=== PATIENT | female | born 1970 | race Caucasian/White ===

== ENCOUNTER 2022-08-14 21:57 | Inpatient (IN) | payer BC ==
[~2022-08-14 21:57] MED LIST: Iopamidol-370 76% 500 ML 1 ML ONE
[2022-08-14 22:40] LABS: #Basophils 0.1 thou/uL (0.0-0.2); #Eosinphils 0.3 thou/uL (0.0-0.7); #Lymphocytes 2.2 thou/uL (1.20-3.40); #Monocytes 0.7 thou/uL (0.11-0.59); #Neutrophils 10.4 thou/uL (1.40-6.50); %Basophils 0.6 % (0.0-1.0); %Eosinophils 1.9 % (0.0-10.0); %Lymphocytes 16.4 % (21.0-51.0); %Monocytes 5.1 % (0.0-10.0); %Neutrophils 76.1 % (42.0-75.0); Hemoglobin 17.4 g/dL (12.0-16.0); Mean Corpuscular HGB CONC 33.7 g/dL (32.0-36.0); Mean Corpuscular Volume 97.7 fl (78.0-98.0); Mean Platelet Volume 7.9 fL (7.4-10.4); Platelet Count 308 10x3/uL (130-400); RBC Distribution Width 12.3 % (11.5-14.5); Red Blood Cell (RBC) Count 5.28 mill/uL (4.20-5.40); White Blood Cell (WBC) Count 13.7 10x3/uL (4.8-10.8)
[2022-08-14] MEDS ORDERED: Ondansetron PF 4 MG/2 ML Vial ONE (22:40)
[2022-08-14] MEDS ORDERED: Aspirin Chewable 81 MG TAB ONE (22:40)
[2022-08-14 23:04] LABS: ALT (SGPT) 47 U/L (8-55); AST (SGOT) 167 U/L (5-34); Albumin 4.4 g/dL (3.5-5.0); Alkaline Phosphatase 116 U/L (40-110); Anion Gap 13 mmol/L (10-20); BUN (Urea Nitrogen) 11 mg/dL (9.8-20.1); Bilirubin, Total 1.1 mg/dL (0.2-1.2); Calc. Creatinine Clearance 0 mL/min (70-130); Calcium 11.4 mg/dL (7.8-10.44); Carbon Dioxide 26 mmol/L (22-29); Chloride 103 mmol/L (98-107); Estimated GFR 93; Glucose 122 mg/dL (70-105); Lipase 48 U/L (8-78); Potassium 4.1 mmol/L (3.5-5.1); Protein, Total 7.4 g/dL (6.0-8.3); Sodium 138 mmol/L (136-145)
[2022-08-14] MEDS ORDERED: Ketorolac Tromethamine 30 MG/ML VIAL ONE (23:27)
[2022-08-15 00:04] LABS: CKMB 189.6 ng/mL (0-6.6)
[2022-08-15] MEDS ORDERED: Nitroglycerin 0.4 MG TAB 1 EACH ONE ×4 (00:17→02:55)
[2022-08-15 00:32] LABS: Bacteria/HPF 3+ HPF (None Seen); Bilirubin Negative (Negative); Blood, Urine Negative (Negative); Clarity Clear (Clear); Glucose, Urine (Dipstick) Normal (Negative); Ketone, Urine Negative (Negative); Leukocyte 25 Leu/uL (Negative); Nitrite 2+ (Negative); Protein, Urine (Dipstick) Negative (Neg-Trace); RBC/HPF 0-3 HPF (0-3); Specific Gravity, Urine 1.009 (1.002-1.036); Squamous Epithelial 0-3 HPF (0-3); Urobilinogen Normal mg/dL (Less than 2)
[2022-08-15] MEDS ORDERED: Nitroglycerin 0.4 MG TAB (25 Tab Bottle) SL PRN (02:24)
[2022-08-15] MEDS ORDERED: Ondansetron PF 4 MG/2 ML Vial IVP PRN (02:24)
[2022-08-15] MEDS ORDERED: Lorazepam 1 MG TAB PO PRN (02:41)
[2022-08-15] MEDS ORDERED: Electrolyte Replacement Protocol 1 EACH FS SCH (02:45)
[2022-08-15 03:13] LABS: Troponin I 28.873 ng/mL (< 0.028)
[2022-08-15 03:41] VITALS: BMI 21.9
[2022-08-15] MEDS ORDERED: Lactated Ringer's 1,000 ML IV SCH (03:45)
[2022-08-15] MEDS: Thiamine HCl 200 MG/2 ML VIAL SLOW IVP SCH (04:04)
[2022-08-15] MEDS: Morphine 4 MG/ML VIAL SLOW IVP PRN ×4 (04:16→21:04)
[2022-08-15 05:20] LABS: Amphetamine Not Detected (NotDetected); Barbiturates Screen Not Detected (NotDetected); Benzodiazepine Screen Not Detected (NotDetected); Cocaine Metabolite Screen Not Detected (NotDetected); Methadone Not Detected (NotDetected); Methamphetamine Not Detected (NotDetected); Opiate Screen Not Detected (NotDetected); Oxycodone Screen Not Detected (NotDetected); Phencyclidine (PCP) Not Detected (NotDetected); THC/Cannabinoid Screen Not Detected (NotDetected); Tricyclic Screen Not Detected (NotDetected)
[2022-08-15 05:30] LABS: #Eosinphils 0.2 thou/uL (0.0-0.7); #Lymphocytes 1.7 thou/uL (1.20-3.40); #Monocytes 0.6 thou/uL (0.11-0.59); #Neutrophils 8.1 thou/uL (1.40-6.50); %Basophils 0.4 % (0.0-1.0); %Eosinophils 2.3 % (0.0-10.0); %Lymphocytes 15.5 % (21.0-51.0); %Neutrophils 75.7 % (42.0-75.0); Hemoglobin 16.6 g/dL (12.0-16.0); Mean Corpuscular HGB CONC 30.6 g/dL (32.0-36.0); Mean Corpuscular Hemoglobin 30.4 pg (27.0-31.0); Mean Corpuscular Volume 99.3 fl (78.0-98.0); Mean Platelet Volume 8.5 fL (7.4-10.4); Platelet Count 300 10x3/uL (130-400); RBC Distribution Width 12.4 % (11.5-14.5); Red Blood Cell (RBC) Count 5.46 mill/uL (4.20-5.40); White Blood Cell (WBC) Count 10.7 10x3/uL (4.8-10.8)
[2022-08-15 05:46] LABS: Hemoglobin A1c 5.2 % (4.0-6.0)
[2022-08-15 05:50] LABS: Anion Gap 12 mmol/L (10-20); BUN (Urea Nitrogen) 10 mg/dL (9.8-20.1); Calc. Creatinine Clearance 71 mL/min (70-130); Calcium 10.3 mg/dL (7.8-10.44); Carbon Dioxide 23 mmol/L (22-29); Cardiac Risk 4.7 (Less than 4.5); Chloride 105 mmol/L (98-107); Cholesterol 192 mg/dl (< 200 Desired); Estimated GFR 100; Glucose 106 mg/dL (70-105); HDL Cholesterol 41 mg/dL (>60 Neg Risk); LDL Cholesterol, Calculated 117 mg/dL; Potassium 4.5 mmol/L (3.5-5.1); Sodium 135 mmol/L (136-145); Triglycerides 168 mg/dL (Less than 150)
[2022-08-15] MEDS ORDERED: Nicotine 21 MG PATCH TD SCH (06:00)
[2022-08-15 06:06] LABS: Troponin I 25.394 ng/mL (< 0.028)
[2022-08-15 06:15] LABS: HBSAg Index 0.26 S/CO (0-0.99); HIV (1/2) Antibody/Antigen Non-Reactive (NonReactive); HIV 1/2 INDEX 0.28 S/CO (<1.00); Hep B Surf Ag Non-Reactive S/CO (NonReactive); Hep C IgG Ab Non-Reactive (NonReactive)
[2022-08-15] MEDS: Multivit, Therapeutic 1 TAB PO SCH (07:57)
[2022-08-15] MEDS: Folic Acid 1 MG TAB PO SCH (07:57)
[2022-08-15] MEDS: Aspirin Chewable 81 MG TAB PO SCH (07:57)
[2022-08-15] MEDS: Nitrofurantoin Monohyd/M-Cryst 100 MG CAP PO SCH ×2 (07:57→21:01)
[2022-08-15] MEDS ORDERED: Sodium Chloride 0.9% 1,000 ML IV SCH ×2 (08:30→14:49)
[2022-08-15] MEDS ORDERED: Communication Order-Pharmacy FS SCH (08:30)
[2022-08-15] MEDS ORDERED: Iopamidol 370 76% 100 ML VIAL ONE (10:19)
[2022-08-15 11:06] LABS: Syphilis Antibody Nonreactive (Nonreactive); Syphilis Antibody Index 0.16 S/CO (<1.00 Non-Reactive)
[2022-08-15] MEDS: Acetaminophen 325 MG TAB PO PRN (11:51)
[2022-08-15] MEDS ORDERED: Lidocaine 1% (PF) 30 ML VIAL ONE (12:50)
[2022-08-15] MEDS ORDERED: Heparin 10,000 UNITS/ 10 ML VIAL ONE (13:22)
[2022-08-15] MEDS ORDERED: Midazolam HCl 2 mg/2 ml Vial ONE (13:23)
[2022-08-15] MEDS ORDERED: FENTANYL 50 MCG/ML 1 ML VIAL ONE (13:23)
[2022-08-15] MEDS ORDERED: Nitroglycerin 100MG/250ML BOT 0 ML ONE (13:52)
[2022-08-15] MEDS ORDERED: TICAGRELOR 90 MG TABLET ONE (14:28)
[2022-08-15] MEDS ORDERED: Morphine 4 MG/ML VIAL ONE (17:40)
[2022-08-15] MEDS: Carvedilol 3.125 MG TAB PO SCH (21:00)
[2022-08-15] MEDS: Atorvastatin Calcium 40 MG TAB PO SCH (21:00)
[2022-08-15] MEDS: TICAGRELOR 90 MG TABLET PO SCH (21:00)
[2022-08-16] MEDS ORDERED: Lorazepam 1 MG TAB PO PRN (02:41)
[2022-08-16] MEDS: Thiamine HCl 200 MG/2 ML VIAL SLOW IVP SCH (03:17)
[2022-08-16 05:00] LABS: #Eosinphils 0.2 thou/uL (0.0-0.7); #Lymphocytes 1.4 thou/uL (1.20-3.40); #Monocytes 0.7 thou/uL (0.11-0.59); #Neutrophils 7.9 thou/uL (1.40-6.50); %Basophils 0.5 % (0.0-1.0); %Eosinophils 1.6 % (0.0-10.0); %Monocytes 6.7 % (0.0-10.0); %Neutrophils 77.2 % (42.0-75.0); Hemoglobin 15.5 g/dL (12.0-16.0); Mean Corpuscular HGB CONC 33.7 g/dL (32.0-36.0); Mean Corpuscular Hemoglobin 33.6 pg (27.0-31.0); Mean Corpuscular Volume 99.7 fl (78.0-98.0); Mean Platelet Volume 8.2 fL (7.4-10.4); Platelet Count 250 10x3/uL (130-400); RBC Distribution Width 12.3 % (11.5-14.5); White Blood Cell (WBC) Count 10.2 10x3/uL (4.8-10.8)
[2022-08-16 05:15] LABS: ALT (SGPT) 24 U/L (8-55); AST (SGOT) 53 U/L (5-34); Albumin 3.5 g/dL (3.5-5.0); Alkaline Phosphatase 96 U/L (40-110); Anion Gap 11 mmol/L (10-20); BUN (Urea Nitrogen) 13 mg/dL (9.8-20.1); Bilirubin, Total 1.2 mg/dL (0.2-1.2); Calc. Creatinine Clearance 72 mL/min (70-130); Calcium 8.9 mg/dL (7.8-10.44); Carbon Dioxide 24 mmol/L (22-29); Chloride 105 mmol/L (98-107); Estimated GFR 101; Globulin 2.7 g/dL (2.4-3.5); Glucose 103 mg/dL (70-105); Potassium 4.4 mmol/L (3.5-5.1); Protein, Total 6.2 g/dL (6.0-8.3); Sodium 136 mmol/L (136-145)
[2022-08-16] MEDS: Morphine 4 MG/ML VIAL SLOW IVP PRN (07:22)
[2022-08-16] MEDS: Nitrofurantoin Monohyd/M-Cryst 100 MG CAP PO SCH (08:56)
[2022-08-16] MEDS: Carvedilol 3.125 MG TAB PO SCH ×2 (08:56→17:41)
[2022-08-16] MEDS: Multivit, Therapeutic 1 TAB PO SCH (08:56)
[2022-08-16] MEDS: Aspirin Chewable 81 MG TAB PO SCH (08:56)
[2022-08-16] MEDS: Folic Acid 1 MG TAB PO SCH (08:56)
[2022-08-16] MEDS: TICAGRELOR 90 MG TABLET PO SCH ×2 (08:57→20:00)
[2022-08-16] MEDS ORDERED: Varenicline Tartrate 0.5 MG TAB PO SCH (13:45)
[2022-08-16] MEDS ORDERED: hydrOXYzine 25 MG TAB PO PRN (14:13)
[2022-08-16] MEDS: hydrOXYzine 25 MG TAB PO PRN ×2 (14:30→20:00)
[2022-08-16 14:45] LABS: Chlam.trachomatis by PCR,Urine Not Detected (NotDetected); GC N.gonorrhoeae PCR,UrineVOID Not Detected (NotDetected)
[2022-08-16] MEDS ORDERED: cefTRIAXone\\ROCEPHIN 1 GM in Sodium Chloride 0.9% 100 ML IVPB SCH (17:00)
[2022-08-16] MEDS ORDERED: Communication Order-Pharmacy FS SCH (18:00)
[2022-08-16] MEDS: Atorvastatin Calcium 40 MG TAB PO SCH (20:00)
[2022-08-16] MEDS: Famotidine 20 MG TAB PO SCH (20:00)
[2022-08-17] MEDS ORDERED: Lorazepam 1 MG TAB PO PRN (02:41)
[2022-08-17] MEDS: Thiamine HCl 200 MG/2 ML VIAL SLOW IVP SCH (04:14)
[2022-08-17] MEDS ORDERED: Varenicline Tartrate 0.5 MG TAB PO SCH (09:00)
[2022-08-17] MEDS: Famotidine 20 MG TAB PO SCH ×2 (09:49→20:44)
[2022-08-17] MEDS: Aspirin Chewable 81 MG TAB PO SCH (09:49)
[2022-08-17] MEDS: TICAGRELOR 90 MG TABLET PO SCH ×2 (09:50→20:44)
[2022-08-17] MEDS: Varenicline Tartrate 0.5 MG TAB PO SCH (09:50)
[2022-08-17] MEDS: Nitrofurantoin Monohyd/M-Cryst 100 MG CAP PO SCH ×2 (09:50→20:44)
[2022-08-17] MEDS: Carvedilol 3.125 MG TAB PO SCH ×2 (09:59→17:42)
[2022-08-17] MEDS: hydrOXYzine 25 MG TAB PO PRN ×2 (12:50→20:44)
[2022-08-17] MEDS: Atorvastatin Calcium 40 MG TAB PO SCH (20:44)
[2022-08-18] MEDS ORDERED: Lorazepam 0.5 MG TAB PO PRN (02:41)
[2022-08-18] MEDS: Nitrofurantoin Monohyd/M-Cryst 100 MG CAP PO SCH ×2 (05:36→21:32)
[2022-08-18] MEDS: Famotidine 20 MG TAB PO SCH ×2 (05:36→21:32)
[2022-08-18] MEDS: Aspirin Chewable 81 MG TAB PO SCH (05:37)
[2022-08-18] MEDS: Varenicline Tartrate 0.5 MG TAB PO SCH (05:37)
[2022-08-18] MEDS: Carvedilol 3.125 MG TAB PO SCH ×2 (05:37→18:04)
[2022-08-18] MEDS ORDERED: Sodium Chloride 0.9% 1,000 ML IV SCH ×2 (06:00→07:52)
[2022-08-18] MEDS ORDERED: Adenosine 6 MG/2 ML VIAL ONE (06:13)
[2022-08-18] MEDS ORDERED: Verapamil 5 MG/2 ML VIAL ONE (06:13)
[2022-08-18] MEDS ORDERED: Heparin 10,000 UNITS/ 10 ML VIAL ONE (06:13)
[2022-08-18] MEDS ORDERED: Lidocaine 1% (PF) 30 ML VIAL ONE (06:13)
[2022-08-18] MEDS ORDERED: Nitroglycerin 100MG/250ML BOT 0 ML ONE (06:13)
[2022-08-18] MEDS ORDERED: Midazolam HCl 2 mg/2 ml Vial ONE (06:47)
[2022-08-18] MEDS ORDERED: FENTANYL 50 MCG/ML 1 ML VIAL ONE (06:47)
[2022-08-18] MEDS ORDERED: Atropine Sulfate 1 mg/10 ml Syringe ONE (07:15)
[2022-08-18] MEDS ORDERED: TICAGRELOR 90 MG TABLET ONE (07:48)
[2022-08-18] MEDS ORDERED: Thiamine 100 MG TAB PO SCH (09:00)
[2022-08-18] MEDS ORDERED: Iopamidol 370 76% 100 ML VIAL ONE (09:26)
[2022-08-18] MEDS ORDERED: Morphine 4 MG/ML VIAL ONE (11:21)
[2022-08-18] MEDS ORDERED: Fentanyl 100 MCG/2 ML VIAL ONE (11:37)
[2022-08-18] MEDS: Morphine 4 MG/ML VIAL SLOW IVP PRN (12:09)
[2022-08-18] MEDS: TICAGRELOR 90 MG TABLET PO SCH ×2 (12:55→21:32)
[2022-08-18] MEDS: hydrOXYzine 25 MG TAB PO PRN ×2 (13:20→21:32)
[2022-08-18] MEDS: Aspirin 81 mg Enteric Coated Tablet PO SCH (13:21)
[2022-08-18] MEDS: Acetaminophen 325 MG TAB PO PRN (18:04)
[2022-08-18] MEDS: Atorvastatin Calcium 40 MG TAB PO SCH (21:32)
[2022-08-19 05:13] LABS: #Eosinphils 0.3 thou/uL (0.0-0.7); #Lymphocytes 1.5 thou/uL (1.20-3.40); #Monocytes 0.4 thou/uL (0.11-0.59); #Neutrophils 6.6 thou/uL (1.40-6.50); %Basophils 0.4 % (0.0-1.0); %Eosinophils 3.6 % (0.0-10.0); %Lymphocytes 16.4 % (21.0-51.0); %Monocytes 4.6 % (0.0-10.0); Hemoglobin 14.3 g/dL (12.0-16.0); Mean Corpuscular HGB CONC 33.9 g/dL (32.0-36.0); Mean Corpuscular Hemoglobin 33.3 pg (27.0-31.0); Mean Corpuscular Volume 98.4 fl (78.0-98.0); Mean Platelet Volume 8.4 fL (7.4-10.4); Platelet Count 265 10x3/uL (130-400); RBC Distribution Width 11.9 % (11.5-14.5); Red Blood Cell (RBC) Count 4.29 mill/uL (4.20-5.40); White Blood Cell (WBC) Count 8.9 10x3/uL (4.8-10.8)
[2022-08-19 05:36] LABS: ALT (SGPT) 22 U/L (8-55); AST (SGOT) 23 U/L (5-34); Albumin 3.6 g/dL (3.5-5.0); Alkaline Phosphatase 89 U/L (40-110); Anion Gap 10 mmol/L (10-20); BUN (Urea Nitrogen) 14 mg/dL (9.8-20.1); Bilirubin, Total 0.9 mg/dL (0.2-1.2); Calc. Creatinine Clearance 78 mL/min (70-130); Calcium 9.1 mg/dL (7.8-10.44); Carbon Dioxide 23 mmol/L (22-29); Chloride 107 mmol/L (98-107); Estimated GFR 106; Globulin 2.7 g/dL (2.4-3.5); Glucose 112 mg/dL (70-105); Potassium 4.3 mmol/L (3.5-5.1); Protein, Total 6.3 g/dL (6.0-8.3); Sodium 136 mmol/L (136-145)
[2022-08-19] MEDS: Morphine 4 MG/ML VIAL SLOW IVP PRN (06:12)
[2022-08-19] MEDS: TICAGRELOR 90 MG TABLET PO SCH (09:49)
[2022-08-19] MEDS: Varenicline Tartrate 0.5 MG TAB PO SCH (09:49)
[2022-08-19] MEDS: Famotidine 20 MG TAB PO SCH (09:49)
[2022-08-19] MEDS: Aspirin 81 mg Enteric Coated Tablet PO SCH (09:49)
[2022-08-19] MEDS: Carvedilol 3.125 MG TAB PO SCH (09:49)
[2022-08-19] MEDS: Nitrofurantoin Monohyd/M-Cryst 100 MG CAP PO SCH (09:50)
[2022-08-19 11:51] VITALS: BP 107/73; TEMP 97
== END 2022-08-19 13:45 | disposition home or self-care (01) | DRG 246 ==
LOC: ERS 21:57 → 2SW 08-15 02:00
PROVIDERS: ADMIT Student in an Organized Health Care Education/Training Program; ATTEND Family Medicine
PROC: 027034Z Dilation of Coronary Artery, One Artery with Drug-eluting Intraluminal Device, Percutaneous Approach (ICD-10-PCS; principal; 2022-08-15)
PROC: 4A023N7 Measurement of Cardiac Sampling and Pressure, Left Heart, Percutaneous Approach (ICD-10-PCS; 2022-08-15)
PROC: B2151ZZ Fluoroscopy of Left Heart using Low Osmolar Contrast (ICD-10-PCS; 2022-08-15)
PROC: B2111ZZ Fluoroscopy of Multiple Coronary Arteries using Low Osmolar Contrast (ICD-10-PCS; 2022-08-15)
PROC: 027034Z Dilation of Coronary Artery, One Artery with Drug-eluting Intraluminal Device, Percutaneous Approach (ICD-10-PCS; 2022-08-18)
PROC: B2151ZZ Fluoroscopy of Left Heart using Low Osmolar Contrast (ICD-10-PCS; 2022-08-18)
PROC: B2111ZZ Fluoroscopy of Multiple Coronary Arteries using Low Osmolar Contrast (ICD-10-PCS; 2022-08-18)
DX: I21.4 Non-ST elevation (NSTEMI) myocardial infarction (principal); I50.21 Acute systolic (congestive) heart failure; N39.0 Urinary tract infection, site not specified; Z20.822 Contact with and (suspected) exposure to COVID-19; F17.210 Nicotine dependence, cigarettes, uncomplicated; D75.1 Secondary polycythemia; E83.52 Hypercalcemia; F10.10 Alcohol abuse, uncomplicated; E78.00 Pure hypercholesterolemia, unspecified; F41.9 Anxiety disorder, unspecified; I11.0 Hypertensive heart disease with heart failure; B96.20 Unspecified Escherichia coli [E. coli] as the cause of diseases classified elsewhere; N76.0 Acute vaginitis; Z88.2 Allergy status to sulfonamides; Z90.710 Acquired absence of both cervix and uterus; Z79.899 Other long term (current) drug therapy; Z87.440 Personal history of urinary (tract) infections; Z87.442 Personal history of urinary calculi; Z71.6 Tobacco abuse counseling; Z71.41 Alcohol abuse counseling and surveillance of alcoholic
CPT/HCPCS: 36415; 71045; 71275; 76936; 80048; 80053; 80061; 80306; 81003; 81015; 82553; 83036; 83690; 84443; 84484; 85025; 85347; 85379; 86780; 86803; 87077; 87086; 87186; 87340; 87389; 87480; 87491; 87510; 87591; 87660; 92928; 93005; 93010; 93452; 93458; 93798; 96361; 96372; 96374; 96375; 99152; 99153; C1769; C1874; C1876; C1887; C9600; J0153; J0696; J1644; J1650; J1885; J2001; J2250; J2270; J2405; J3010; J3411; J3490; J7050; J7120; Q9967; U0003; U0005

== ENCOUNTER 2023-03-14 14:15 | Inpatient (IN) | payer BC ==
[~2023-03-14 14:15] MED LIST changes: -Iopamidol-370 76% 500 ML 1 ML ONE; +Iopamidol-370 76% 500 ML MDV (1 ML CHARGE) ONE
[2023-03-14] MEDS ORDERED: Morphine 4 MG/ML VIAL ONE ×2 (15:25→17:37)
[2023-03-14 15:28] LABS: #Basophils 0.1 thou/uL (0.0-0.2); #Eosinphils 0.1 thou/uL (0.0-0.7); #Monocytes 0.4 thou/uL (0.11-0.59); #Neutrophils 20.1 thou/uL (1.40-6.50); %Basophils 0.3 % (0.0-1.0); %Eosinophils 0.5 % (0.0-10.0); %Lymphocytes 3.5 % (21.0-51.0); %Monocytes 1.9 % (0.0-10.0); Hematocrit 39.5 % (36.0-47.0); Hemoglobin 12.7 g/dL (12.0-16.0); Mean Corpuscular HGB CONC 32.2 g/dL (32.0-36.0); Mean Corpuscular Hemoglobin 30.2 pg (27.0-31.0); Mean Corpuscular Volume 93.8 fl (78.0-98.0); Mean Platelet Volume 9.7 fL (7.4-10.4); Platelet Count 577 10x3/uL (130-400); RBC Distribution Width 13.9 % (11.5-14.5); Red Blood Cell (RBC) Count 4.21 mill/uL (4.20-5.40); White Blood Cell (WBC) Count 21.6 10x3/uL (4.8-10.8)
[2023-03-14 15:56] LABS: ALT (SGPT) 35 U/L (8-55); AST (SGOT) 23 U/L (5-34); Albumin 4.1 g/dL (3.5-5.0); Alkaline Phosphatase 98 U/L (40-110); Anion Gap 15 mmol/L (10-20); BUN (Urea Nitrogen) 18 mg/dL (9.8-20.1); Bilirubin, Total 0.6 mg/dL (0.2-1.2); Calc. Creatinine Clearance 0 mL/min (70-130); Calcium 9.6 mg/dL (7.8-10.44); Carbon Dioxide 20 mmol/L (22-29); Chloride 103 mmol/L (98-107); Estimated GFR 71; Globulin 3.1 g/dL (2.4-3.5); Glucose 130 mg/dL (70-105); Potassium 5.3 mmol/L (3.5-5.1); Protein, Total 7.2 g/dL (6.0-8.3); Sodium 133 mmol/L (136-145)
[2023-03-14 15:59] LABS: Bilirubin Negative (Negative); Blood, Urine Negative (Negative); CAUTI Indications for Culture Pelvic or flank pain; Calcium Oxalate Crystals 1+ HPF (None Seen); Clarity Clear (Clear); Glucose, Urine (Dipstick) Normal (Negative); Ketone, Urine Negative (Negative); Leukocyte 250 Leu/uL (Negative); Nitrite Negative (Negative); Protein, Urine (Dipstick) 10 mg/dL (Neg-Trace); RBC/HPF 0-3 HPF (0-3); Specific Gravity, Urine 1.019 (1.002-1.036); Urobilinogen Normal mg/dL (Less than 2); WBC/HPF Greater than 50 HPF (0-3); Yeast-Budding 1+ HPF (None Seen); pH, Urine 5.5 (5.0-9.0)
[2023-03-14 16:00] LABS: Troponin I 0.023 ng/mL (< 0.028)
[2023-03-14 16:10] LABS: Bacteria/HPF Rare-Few HPF (None Seen)
[2023-03-14 16:12] LABS: Urine Culture Reflex Yes Yes
[2023-03-14] MEDS ORDERED: LevoFLOXacin 750 mg/D5W 150 ml Premix Bag ONE (17:27)
[2023-03-14] MEDS ORDERED: Cefepime 2 GM VIAL ONE (17:27)
[2023-03-14] MEDS ORDERED: Vancomycin 1.5 GRAM/300 ML BAG 1.5 GM in Premix Bag 1 BAG IVPB SCH (17:30)
[2023-03-14] MEDS ORDERED: Ondansetron ODT 4 MG TAB PO PRN (18:53)
[2023-03-14 19:55] VITALS: BMI 24.2
[2023-03-14] MEDS ORDERED: oxyCODONE 5 MG TAB PO PRN ×2 (20:11→20:21)
[2023-03-14] MEDS: Lactated Ringer's 1,000 ML IV SCH (20:21)
[2023-03-14 20:29] LABS: Amphetamine Not Detected (NotDetected); Barbiturates Screen Not Detected (NotDetected); Benzodiazepine Screen Not Detected (NotDetected); Cocaine Metabolite Screen Not Detected (NotDetected); Methadone Not Detected (NotDetected); Methamphetamine Not Detected (NotDetected); Opiate Screen Not Detected (NotDetected); Oxycodone Screen Detected (NotDetected); Phencyclidine (PCP) Not Detected (NotDetected); THC/Cannabinoid Screen Not Detected (NotDetected); Tricyclic Screen Detected (NotDetected)
[2023-03-14] MEDS ORDERED: Estradiol 0.01% Vaginal Cream 42.5 gm Tube VAG SCH (20:30)
[2023-03-14] MEDS ORDERED: Transdermal Patch Removal TOP SCH (21:00)
[2023-03-14] MEDS ORDERED: Amitriptyline HCl 25 MG TAB PO SCH (21:00)
[2023-03-14] MEDS: TICAGRELOR 90 MG TABLET PO SCH (22:07)
[2023-03-14] MEDS: Gabapentin 300 MG CAP PO SCH (22:08)
[2023-03-14] MEDS: Acetaminophen 325 MG TAB PO PRN (22:08)
[2023-03-14] MEDS: Cyclobenzaprine 10 MG TAB PO PRN (22:08)
[2023-03-14 23:51] LABS: SARS-CoV-2 NAA Rapid Test Not Detected (NotDetected)
[2023-03-15] MEDS: Lactated Ringer's 1,000 ML IV SCH (05:05)
[2023-03-15 06:23] LABS: #Basophils 0.1 thou/uL (0.0-0.2); #Eosinphils 0.2 thou/uL (0.0-0.7); #Monocytes 0.5 thou/uL (0.11-0.59); %Basophils 0.4 % (0.0-1.0); %Eosinophils 1.7 % (0.0-10.0); %Lymphocytes 14.4 % (21.0-51.0); %Neutrophils 78.6 % (42.0-75.0); Hematocrit 35.7 % (36.0-47.0); Hemoglobin 11.3 g/dL (12.0-16.0); Mean Corpuscular HGB CONC 31.7 g/dL (32.0-36.0); Mean Corpuscular Hemoglobin 30.5 pg (27.0-31.0); Mean Corpuscular Volume 96.5 fl (78.0-98.0); Mean Platelet Volume 9.8 fL (7.4-10.4); Platelet Count 570 10x3/uL (130-400); RBC Distribution Width 13.8 % (11.5-14.5); White Blood Cell (WBC) Count 12.7 10x3/uL (4.8-10.8)
[2023-03-15 06:50] LABS: ALT (SGPT) 26 U/L (8-55); AST (SGOT) 14 U/L (5-34); Albumin 3.5 g/dL (3.5-5.0); Alkaline Phosphatase 78 U/L (40-110); Anion Gap 12 mmol/L (10-20); BUN (Urea Nitrogen) 14 mg/dL (9.8-20.1); Bilirubin, Total 0.5 mg/dL (0.2-1.2); Calc. Creatinine Clearance 78 mL/min (70-130); Calcium 9.3 mg/dL (7.8-10.44); Carbon Dioxide 23 mmol/L (22-29); Chloride 107 mmol/L (98-107); Estimated GFR 101; Globulin 3.1 g/dL (2.4-3.5); Glucose 80 mg/dL (70-105); Protein, Total 6.6 g/dL (6.0-8.3); Sodium 138 mmol/L (136-145)
[2023-03-15 07:31] VITALS: TEMP 98.7
[2023-03-15] MEDS ORDERED: Carvedilol 3.125 MG TAB PO SCH (08:00)
[2023-03-15] MEDS ORDERED: predniSONE 20 MG TAB PO SCH (08:00)
[2023-03-15] MEDS: Gabapentin 300 MG CAP PO SCH (08:57)
[2023-03-15] MEDS: TICAGRELOR 90 MG TABLET PO SCH (08:57)
[2023-03-15] MEDS ORDERED: Bupropion 150 MG XL TAB PO SCH (09:00)
[2023-03-15] MEDS ORDERED: Lidocaine 4% Patch TD SCH (09:00)
[2023-03-15] MEDS ORDERED: Aspirin 81 mg Enteric Coated Tablet PO SCH (09:00)
[2023-03-15] MEDS: Cyclobenzaprine 10 MG TAB PO PRN (09:06)
[2023-03-15] MEDS: Acetaminophen 325 MG TAB PO PRN (09:06)
[2023-03-15 11:19] VITALS: BP 116/80
== END 2023-03-15 16:54 | disposition home or self-care (01) | DRG 694 ==
LOC: ERS 14:15 → T4-A 17:59
PROVIDERS: ADMIT Student in an Organized Health Care Education/Training Program; ATTEND Student in an Organized Health Care Education/Training Program
DX: N20.0 Calculus of kidney (principal); R65.10 Systemic inflammatory response syndrome (SIRS) of non-infectious origin without acute organ dysfunction; E78.5 Hyperlipidemia, unspecified; E87.5 Hyperkalemia; G47.00 Insomnia, unspecified; Z20.822 Contact with and (suspected) exposure to COVID-19; Z88.2 Allergy status to sulfonamides; Z79.82 Long term (current) use of aspirin; I25.2 Old myocardial infarction; Z79.899 Other long term (current) drug therapy; Z90.710 Acquired absence of both cervix and uterus; Z98.890 Other specified postprocedural states; Z87.891 Personal history of nicotine dependence; I25.10 Atherosclerotic heart disease of native coronary artery without angina pectoris; B96.20 Unspecified Escherichia coli [E. coli] as the cause of diseases classified elsewhere
CPT/HCPCS: 36415; 71045; 71275; 74176; 76770; 80053; 80306; 81001; 83605; 84145; 84484; 85025; 85379; 86140; 87040; 87086; 93005; J0692; J1650; J1956; J2270; J3370; J7120; J7512; Q9967

== ENCOUNTER 2023-05-01 14:50 | Outpatient (CLI) | payer BC | END 2023-05-01 14:51 | disposition home or self-care (01) | LOC: BICMAMMO 14:50 | PROVIDERS: ATTEND Internal Medicine Rheumatology | DX: M81.0 Age-related osteoporosis without current pathological fracture (principal) | CPT/HCPCS: 77080 ==

== ENCOUNTER 2023-05-15 09:44 | Outpatient (CLI) | payer BC ==
[2023-05-15 10:47] LABS: Hematocrit 38.9 % (34.9-44.5); Hemoglobin 12.4 g/dL (12.0-15.5); MDiff Complete? YES; Mean Corpuscular HGB CONC 31.9 g/dL (32.0-36.0); Mean Corpuscular Hemoglobin 28.7 pg (27.0-33.0); Platelet Count 476 10x3/uL (150-450); Red Blood Cell (RBC) Count 4.32 10x6/uL (3.90-5.03); White Blood Cell (WBC) Count 13.9 10x3/uL (3.5-10.5)
[2023-05-15 11:12] LABS: Lymphocytes 8 % (21-51); Monocytes 3 % (0-10); Neutrophil 89 % (42-75)
[2023-05-15 11:16] LABS: Large Platelets SLIGHT (None Seen); Platelet Adequacy Comment Appears Increased; Polychromasia SLIGHT = 2-3 cells (100X) (0-2/hpf)
[2023-05-15 11:38] LABS: ALT (SGPT) 19 U/L (8-55); AST (SGOT) 16 U/L (5-34); Alkaline Phosphatase 90 U/L (40-110); Anion Gap 17 mmol/L (10-20); BUN (Urea Nitrogen) 23 mg/dL (9.8-20.1); Bilirubin, Total 0.8 mg/dL (0.2-1.2); Calc. Creatinine Clearance 0 mL/min (70-130); Calcium 9.4 mg/dL (7.8-10.44); Carbon Dioxide 23 mmol/L (22-29); Chloride 101 mmol/L (98-107); Estimated GFR 84; Glucose 152 mg/dL (70-105); Potassium 4.8 mmol/L (3.5-5.1); Sodium 136 mmol/L (136-145)
== END 2023-05-15 09:45 | disposition home or self-care (01) ==
LOC: LABBT 09:44
PROVIDERS: ATTEND Surgery
DX: Z01.818 Encounter for other preprocedural examination (principal); M60.9 Myositis, unspecified
CPT/HCPCS: 80053; 85025; 93005; 93010

== ENCOUNTER 2023-05-20 08:46 | Day surgery (SDC) | payer BC ==
[2023-05-15 10:30] VITALS: BMI 24.6
[2023-05-20] MEDS ORDERED: EPINEPHrine 1 MG/ML VIAL ONE (11:10)
[2023-05-20] MEDS ORDERED: Bupivacaine 0.25% HCL 30 ML VIAL ONE (11:10)
[2023-05-20] MEDS ORDERED: PROPOFOL 20 ML ONE (11:23)
[2023-05-20] MEDS ORDERED: CEFAZOLIN 2 GM VIAL ONE (11:46)
[2023-05-20] MEDS ORDERED: fentaNYL 50 mcg/mL 1 mL Vial ONE (11:46)
[2023-05-20] MEDS ORDERED: Sodium Chloride 0.9% 100 ML ONE (11:47)
[2023-05-20] MEDS ORDERED: Dexamethasone 20 MG/5 ML VIAL ONE (11:55)
[2023-05-20] MEDS ORDERED: PROPOFOL 200 MG/20 ML VIAL ONE (11:55)
[2023-05-20] MEDS ORDERED: Ondansetron PF 4 MG/2 ML Vial ONE ×2 (11:55→11:59)
[2023-05-20] MEDS ORDERED: Lidocaine 1% PF 5 ML VIAL ONE (11:55)
[2023-05-20] MEDS ORDERED: Dexamethasone 4 mg/ml Vial ONE (11:59)
[2023-05-20] MEDS ORDERED: HYDROcodone/Acetaminophen 5/325 mg Tablet ONE (13:03)
== END 2023-05-20 13:17 | disposition home or self-care (01) ==
LOC: SDC 08:46
PROVIDERS: ATTEND Surgery
PROC: 0KBN0ZX Excision of Right Hip Muscle, Open Approach, Diagnostic (ICD-10-PCS; principal; 2023-05-20)
DX: M60.9 Myositis, unspecified (principal); R53.1 Weakness; R74.8 Abnormal levels of other serum enzymes; Z88.2 Allergy status to sulfonamides
CPT/HCPCS: 88305; J0171; J1100; J2405; J2704; J3010; J3490; S0020

== ENCOUNTER 2023-12-10 16:41 | Emergency (ER) | payer BC ==
[2023-12-10] MEDS ORDERED: Ketorolac Tromethamine 30 MG (1 mL) VIAL ONE (17:39)
[2023-12-10] MEDS ORDERED: Orphenadrine Citrate 60 MG/2 ML VIAL ONE (17:53)
[2023-12-10 17:55] LABS: #Basophils Less than 0.03 10x3/uL (0.0-0.2); %Basophils 0.1 % (0.0-1.0); %Eosinophils 0.3 % (0.0-10.0); %Lymphocytes 6.8 % (21.0-51.0); %Monocytes 4.8 % (0.0-10.0); %Neutrophils 87.5 % (42.0-75.0); Hematocrit 38.1 % (36.0-47.0); Hemoglobin 12.9 g/dL (12.0-16.0); Mean Corpuscular HGB CONC 33.9 g/dL (32.0-36.0); Mean Corpuscular Hemoglobin 32.3 pg (27.0-31.0); Mean Corpuscular Volume 95.5 fL (78.0-98.0); Platelet Count 229 10x3/uL (130-400); RBC Distribution Width 15.2 % (11.5-14.5); Red Blood Cell (RBC) Count 3.99 mill/uL (4.20-5.40)
[2023-12-10] MEDS ORDERED: Lidocaine 4% Patch TD SCH (18:00)
[2023-12-10 18:11] LABS: ALT (SGPT) 17 U/L (8-55); AST (SGOT) 18 U/L (5-34); Albumin 3.2 g/dL (3.5-5.0); Alkaline Phosphatase 144 U/L (40-110); Anion Gap 13 mmol/L (10-20); BUN (Urea Nitrogen) 17 mg/dL (9.8-20.1); Bilirubin, Total 0.8 mg/dL (0.2-1.2); Calc. Creatinine Clearance 0 mL/min (70-130); Carbon Dioxide 21 mmol/L (22-29); Chloride 108 mmol/L (98-107); Estimated GFR 89; Globulin 3.6 g/dL (2.4-3.5); Glucose 128 mg/dL (70-105); Potassium 3.7 mmol/L (3.5-5.1); Protein, Total 6.8 g/dL (6.0-8.3); Sodium 138 mmol/L (136-145)
[2023-12-10 19:35] LABS: Bacteria/HPF 2+ HPF (None Seen); Bilirubin Negative (Negative); Blood, Urine 2+ (Negative); CAUTI Indications for Culture Pelvic or flank pain; Clarity Turbid (Clear); Glucose, Urine (Dipstick) Normal (Negative); Ketone, Urine Negative (Negative); Leukocyte 500 Leu/uL (Negative); Nitrite 2+ (Negative); Protein, Urine (Dipstick) 20 mg/dL (Neg-Trace); Urobilinogen Normal mg/dL (Less than 2); WBC/HPF Greater than 50 HPF (0-3); pH, Urine 6.5 (5.0-9.0)
[2023-12-10 19:37] LABS: Urine Culture Reflex Yes Yes
[2023-12-10] MEDS ORDERED: traMADol HCl 50 MG TAB ONE (20:06)
[2023-12-10] MEDS ORDERED: Sodium Chloride 0.9% 100 ML ONE (20:06)
[2023-12-10] MEDS ORDERED: Acetaminophen 325 MG TAB ONE (20:06)
[2023-12-10] MEDS ORDERED: cefTRIAXone (ROCEPHIN) 1 GM VIAL ONE (20:06)
[2023-12-11] MEDS ORDERED: Transdermal Patch Removal TOP SCH (06:00)
== END 2023-12-10 21:30 | disposition home or self-care (01) ==
LOC: ERS 16:41
DX: N12 Tubulo-interstitial nephritis, not specified as acute or chronic (principal); I10 Essential (primary) hypertension; M79.7 Fibromyalgia; F17.210 Nicotine dependence, cigarettes, uncomplicated; Z87.442 Personal history of urinary calculi
CPT/HCPCS: 80053; 81001; 83605; 85025; 86141; 87077; 87086; 87186; 96361; 96374; 96375; J0696; J1885; J2360; J3490

== ENCOUNTER 2024-05-13 14:56 | Emergency (ER) | payer BC, OTHER ==
[2024-05-13 16:06] LABS: #Basophils 0.03 10x3/uL (0.0-0.2); %Basophils 0.2 % (0.0-1.0); %Eosinophils 0.8 % (0.0-10.0); %Lymphocytes 16.8 % (21.0-51.0); %Monocytes 7.5 % (0.0-10.0); %Neutrophils 74.1 % (42.0-75.0); Hematocrit 38.6 % (36.0-47.0); Hemoglobin 12.5 g/dL (12.0-16.0); Mean Corpuscular HGB CONC 32.4 g/dL (32.0-36.0); Mean Corpuscular Volume 89.6 fL (78.0-98.0); Mean Platelet Volume 9.6 fL (7.4-10.4); Platelet Count 451 10x3/uL (130-400); RBC Distribution Width 14.8 % (11.5-14.5); Red Blood Cell (RBC) Count 4.31 mill/uL (4.20-5.40)
[2024-05-13 16:28] LABS: ALT (SGPT) 13 U/L (8-55); AST (SGOT) 19 U/L (5-34); Albumin 3.5 g/dL (3.5-5.0); Alkaline Phosphatase 97 U/L (40-110); Anion Gap 16 mmol/L (10-20); BUN (Urea Nitrogen) 16 mg/dL (9.8-20.1); Calc. Creatinine Clearance 0 mL/min (70-130); Calcium 9.5 mg/dL (7.8-10.44); Carbon Dioxide 22 mmol/L (22-29); Chloride 104 mmol/L (98-107); Estimated GFR 81; Globulin 3.5 g/dL (2.4-3.5); Glucose 97 mg/dL (70-105); Potassium 3.6 mmol/L (3.5-5.1); Sodium 138 mmol/L (136-145)
[2024-05-13] MEDS ORDERED: HYDROcodone/Acetaminophen 5/325 mg Tablet ONE (17:42)
[2024-05-13] MEDS ORDERED: Gabapentin 100 MG CAP ONE (19:38)
[2024-05-13 19:54] LABS: Bilirubin Negative (Negative); Blood, Urine Trace (Negative); CAUTI Indications for Culture Pelvic or flank pain; Clarity Turbid (Clear); Glucose, Urine (Dipstick) Normal (Negative); Ketone, Urine Negative (Negative); Leukocyte 250 Leu/uL (Negative); Nitrite 1+ (Negative); Protein, Urine (Dipstick) 20 mg/dL (Neg-Trace); RBC/HPF 0-3 HPF (0-3); Specific Gravity, Urine 1.008 (1.002-1.036); Urobilinogen Normal mg/dL (Less than 2); WBC/HPF 21-50 HPF (0-3); pH, Urine 6.5 (5.0-9.0)
[2024-05-13 20:02] LABS: Bacteria/HPF 1+ HPF (None Seen)
[2024-05-13 20:04] LABS: Urine Culture Reflex Yes Yes
== END 2024-05-13 21:20 | disposition home or self-care (01) ==
LOC: ERS 14:56
DX: S82.832A Other fracture of upper and lower end of left fibula, initial encounter for closed fracture (principal); S82.202A Unspecified fracture of shaft of left tibia, initial encounter for closed fracture; I25.10 Atherosclerotic heart disease of native coronary artery without angina pectoris; E78.5 Hyperlipidemia, unspecified; F17.210 Nicotine dependence, cigarettes, uncomplicated; V49.9XXA Car occupant (driver) (passenger) injured in unspecified traffic accident, initial encounter; Z55.6 Problems related to health literacy; Z95.5 Presence of coronary angioplasty implant and graft
CPT/HCPCS: 36415; 80053; 81001; 85025; 87077; 87086

== ENCOUNTER 2025-02-06 08:00 | Day surgery (SDC) | payer OTHER ==
[2025-02-06 15:01] LABS: #Basophils 0.04 10x3/uL (0.0-0.2); #Eosinophils 0.18 10x3/uL (0.0-0.7); #Monocytes 0.51 10x3/uL (0.11-0.59); #Neutrophils 8.57 10x3/uL (1.40-6.50); %Basophils 0.4 % (0.0-1.0); %Eosinophils 1.6 % (0.0-10.0); %Lymphocytes 14.7 % (21.0-51.0); %Monocytes 4.6 % (0.0-10.0); %Neutrophils 77.5 % (42.0-75.0); Hematocrit 40.7 % (36.0-47.0); Hemoglobin 12.6 g/dL (12.0-16.0); Mean Corpuscular Hemoglobin 27.6 pg (27.0-31.0); Mean Corpuscular Volume 89.3 fL (78.0-98.0); Platelet Count 375 10x3/uL (130-400); Red Blood Cell (RBC) Count 4.56 mill/uL (4.20-5.40); White Blood Cell (WBC) Count 11.05 10x3/uL (4.8-10.8)
[2025-03-20 13:19] VITALS: BMI 20.4
[2025-03-20 14:02] LABS: #Basophils 0.04 10x3/uL (0.0-0.2); #Eosinophils 0.05 10x3/uL (0.0-0.7); #Monocytes 0.15 10x3/uL (0.11-0.59); #Neutrophils 14.64 10x3/uL (1.40-6.50); %Basophils 0.3 % (0.0-1.0); %Eosinophils 0.3 % (0.0-10.0); %Lymphocytes 5.2 % (21.0-51.0); %Monocytes 0.9 % (0.0-10.0); %Neutrophils 92.6 % (42.0-75.0); Hematocrit 40.9 % (36.0-47.0); Hemoglobin 12.5 g/dL (12.0-16.0); Mean Corpuscular Hemoglobin 27.5 pg (27.0-31.0); Mean Corpuscular Volume 90.1 fL (78.0-98.0); Platelet Count 399 10x3/uL (130-400); Red Blood Cell (RBC) Count 4.54 mill/uL (4.20-5.40); White Blood Cell (WBC) Count 15.82 10x3/uL (4.8-10.8)
[2025-03-20 14:17] LABS: INR-International Normal Ratio 1.0; Prothrombin Time 12.9 sec (12.0-14.7)
== END 2025-02-06 11:42 | disposition home or self-care (01) ==
LOC: SDC 08:00
PROVIDERS: ATTEND Student in an Organized Health Care Education/Training Program
DX: S82.832A Other fracture of upper and lower end of left fibula, initial encounter for closed fracture (principal); S82.202A Unspecified fracture of shaft of left tibia, initial encounter for closed fracture; Z88.2 Allergy status to sulfonamides; X58.XXXA Exposure to other specified factors, initial encounter
CPT/HCPCS: 85025; 85610; 86850; 86900; 86901; 87081

== ENCOUNTER 2025-03-10 16:08 | Inpatient (IN) | payer OTHER ==
[2025-03-10] MEDS ORDERED: Ketorolac Tromethamine 30 MG (1 mL) VIAL ONE (17:28)
[2025-03-10 17:58] LABS: #Basophils 0.05 10x3/uL (0.0-0.2); #Eosinophils 0.09 10x3/uL (0.0-0.7); #Monocytes 1.08 10x3/uL (0.11-0.59); #Neutrophils 12.19 10x3/uL (1.40-6.50); %Basophils 0.3 % (0.0-1.0); %Eosinophils 0.6 % (0.0-10.0); %Lymphocytes 15.0 % (21.0-51.0); %Monocytes 6.8 % (0.0-10.0); %Neutrophils 76.4 % (42.0-75.0); Hematocrit 40.9 % (36.0-47.0); Hemoglobin 13.0 g/dL (12.0-16.0); Mean Corpuscular Hemoglobin 27.5 pg (27.0-31.0); Mean Corpuscular Volume 86.5 fL (78.0-98.0); Platelet Count 410 10x3/uL (130-400); Red Blood Cell (RBC) Count 4.73 mill/uL (4.20-5.40); White Blood Cell (WBC) Count 15.95 10x3/uL (4.8-10.8)
[2025-03-10 18:20] LABS: ALT (SGPT) 19 U/L (Less than 34); AST (SGOT) 29 U/L (11-34); Albumin 3.9 g/dL (3.1-4.5); Anion Gap 14 mmol/L (10-20); BUN (Urea Nitrogen) 21 mg/dL (9.8-20.1); Bilirubin, Total 0.8 mg/dL (0.3-1.2); Calc. Creatinine Clearance 0 mL/min (70-130); Calcium 10.1 mg/dL (7.8-10.44); Carbon Dioxide 23 mmol/L (22-29); Chloride 106 mmol/L (98-107); Globulin 3.2 g/dL (2.4-3.5); Glucose 99 mg/dL (70-105); Potassium 3.6 mmol/L (3.5-5.1); Sodium 139 mmol/L (136-145)
[2025-03-10 18:34] LABS: Alkaline Phosphatase 101 U/L (40-110)
[2025-03-10 18:38] LABS: Free T4 (Free Thyroxine) 1.18 ng/dL (0.70-1.48); Thyroid Stimulating Hormone 1.6935 uIU/mL (0.35-4.94)
[2025-03-10] MEDS ORDERED: Aspirin Chewable 81 MG TAB ONE (19:37)
[2025-03-10] MEDS ORDERED: Ondansetron PF 4 MG/2 ML Vial IVP PRN (22:46)
[2025-03-11 05:07] LABS: #Basophils 0.05 10x3/uL (0.0-0.2); #Eosinophils 0.34 10x3/uL (0.0-0.7); #Monocytes 0.81 10x3/uL (0.11-0.59); #Neutrophils 7.60 10x3/uL (1.40-6.50); %Basophils 0.4 % (0.0-1.0); %Eosinophils 2.9 % (0.0-10.0); %Lymphocytes 24.5 % (21.0-51.0); %Monocytes 6.9 % (0.0-10.0); %Neutrophils 64.5 % (42.0-75.0); Hematocrit 37.2 % (36.0-47.0); Hemoglobin 12.0 g/dL (12.0-16.0); Mean Corpuscular Hemoglobin 28.2 pg (27.0-31.0); Mean Corpuscular Volume 87.3 fL (78.0-98.0); Platelet Count 343 10x3/uL (130-400); Red Blood Cell (RBC) Count 4.26 mill/uL (4.20-5.40); White Blood Cell (WBC) Count 11.78 10x3/uL (4.8-10.8)
[2025-03-11 05:38] LABS: ALT (SGPT) 18 U/L (Less than 34); AST (SGOT) 26 U/L (11-34); Albumin 3.2 g/dL (3.1-4.5); Alkaline Phosphatase 88 U/L (40-110); Anion Gap 12 mmol/L (10-20); BUN (Urea Nitrogen) 19 mg/dL (9.8-20.1); Bilirubin, Total 0.6 mg/dL (0.3-1.2); Calc. Creatinine Clearance 69 mL/min (70-130); Calcium 9.1 mg/dL (7.8-10.44); Carbon Dioxide 24 mmol/L (22-29); Chloride 108 mmol/L (98-107); Globulin 2.9 g/dL (2.4-3.5); Glucose 85 mg/dL (70-105); Potassium 4.0 mmol/L (3.5-5.1); Sodium 140 mmol/L (136-145)
[2025-03-11] MEDS: Carvedilol 3.125 MG TAB PO SCH (08:49)
[2025-03-11] MEDS: Cholecalciferol 1,000 UNITS (25 MCG) TAB PO SCH (08:49)
[2025-03-11] MEDS: Acetaminophen 325 MG TAB PO PRN (08:50)
[2025-03-11] MEDS ORDERED: prednisoLONE 15 MG/5 ML UDCUP PO SCH (09:00)
[2025-03-11 09:26] LABS: Cocaine Metabolite Screen Negative (Negative); THC/Cannabinoid Screen PRELIM POSITIVE (Negative); Tricyclic Screen Negative (Negative)
[2025-03-11] MEDS: Enoxaparin 30 MG (0.3 mL) SYRINGE SC SCH (10:57)
[2025-03-11] MEDS: TICAGRELOR 90 MG TABLET PO SCH (10:57)
[2025-03-12 04:47] LABS: #Basophils 0.05 10x3/uL (0.0-0.2); #Eosinophils 0.50 10x3/uL (0.0-0.7); #Monocytes 0.82 10x3/uL (0.11-0.59); #Neutrophils 9.96 10x3/uL (1.40-6.50); %Basophils 0.4 % (0.0-1.0); %Eosinophils 3.8 % (0.0-10.0); %Lymphocytes 13.3 % (21.0-51.0); %Monocytes 6.2 % (0.0-10.0); %Neutrophils 75.5 % (42.0-75.0); Hematocrit 38.6 % (36.0-47.0); Hemoglobin 12.3 g/dL (12.0-16.0); Mean Corpuscular Hemoglobin 27.8 pg (27.0-31.0); Mean Corpuscular Volume 87.3 fL (78.0-98.0); Platelet Count 341 10x3/uL (130-400); Red Blood Cell (RBC) Count 4.42 mill/uL (4.20-5.40); White Blood Cell (WBC) Count 13.20 10x3/uL (4.8-10.8)
[2025-03-12 05:21] LABS: ALT (SGPT) 16 U/L (Less than 34); AST (SGOT) 22 U/L (11-34); Albumin 3.4 g/dL (3.1-4.5); Alkaline Phosphatase 92 U/L (40-110); Anion Gap 16 mmol/L (10-20); BUN (Urea Nitrogen) 17 mg/dL (9.8-20.1); Bilirubin, Total 1.2 mg/dL (0.3-1.2); Calc. Creatinine Clearance 64 mL/min (70-130); Calcium 9.1 mg/dL (7.8-10.44); Carbon Dioxide 23 mmol/L (22-29); Chloride 104 mmol/L (98-107); Globulin 2.9 g/dL (2.4-3.5); Glucose 107 mg/dL (70-105); Potassium 3.9 mmol/L (3.5-5.1); Sodium 139 mmol/L (136-145)
[2025-03-12] MEDS: Diclofenac 1% 50 GM TOPICAL GEL TP SCH (09:39)
[2025-03-12] MEDS: Gabapentin 100 MG CAP PO SCH (09:42)
[2025-03-12] MEDS: DULoxetine 30 MG CAP PO SCH (09:44)
[2025-03-12] MEDS: HYDROcodone/Acetaminophen 5/325 mg Tablet PO SCH (09:55)
[2025-03-12 13:34] LABS: CAUTI Indications for Culture Dysuria,urgency,freq; Glucose, Urine (Dipstick) Normal (Negative); Leukocyte 250 Leu/uL (Negative); Protein, Urine (Dipstick) 10 mg/dL (Neg-Trace); RBC/HPF 0-3 HPF (0-3); Specific Gravity, Urine 1.016 (1.002-1.036); WBC/HPF 21-50 HPF (0-3)
[2025-03-12 13:53] LABS: Bacteria/HPF 4+ HPF (None Seen); Yeast-Budding Rare HPF (None Seen)
[2025-03-12 13:54] LABS: Urine Culture Reflex Yes Yes
[2025-03-13 05:40] LABS: #Basophils 0.04 10x3/uL (0.0-0.2); #Eosinophils 0.42 10x3/uL (0.0-0.7); #Monocytes 0.57 10x3/uL (0.11-0.59); #Neutrophils 12.09 10x3/uL (1.40-6.50); %Basophils 0.3 % (0.0-1.0); %Eosinophils 2.9 % (0.0-10.0); %Lymphocytes 9.1 % (21.0-51.0); %Monocytes 3.9 % (0.0-10.0); %Neutrophils 83.0 % (42.0-75.0); Hematocrit 38.9 % (36.0-47.0); Hemoglobin 12.1 g/dL (12.0-16.0); Mean Corpuscular Hemoglobin 27.7 pg (27.0-31.0); Mean Corpuscular Volume 89.0 fL (78.0-98.0); Platelet Count 317 10x3/uL (130-400); Red Blood Cell (RBC) Count 4.37 mill/uL (4.20-5.40); White Blood Cell (WBC) Count 14.57 10x3/uL (4.8-10.8)
[2025-03-13 05:59] LABS: ALT (SGPT) 14 U/L (Less than 34); AST (SGOT) 19 U/L (11-34); Albumin 3.2 g/dL (3.1-4.5); Alkaline Phosphatase 92 U/L (40-110); Anion Gap 11 mmol/L (10-20); BUN (Urea Nitrogen) 17 mg/dL (9.8-20.1); Bilirubin, Total 1.7 mg/dL (0.3-1.2); Calc. Creatinine Clearance 76 mL/min (70-130); Calcium 9.1 mg/dL (7.8-10.44); Carbon Dioxide 24 mmol/L (22-29); Chloride 106 mmol/L (98-107); Globulin 3.1 g/dL (2.4-3.5); Glucose 106 mg/dL (70-105); Potassium 4.0 mmol/L (3.5-5.1); Sodium 137 mmol/L (136-145)
[2025-03-13 12:28] VITALS: BP 104/70; TEMP 98.3
== END 2025-03-13 16:52 | disposition home or self-care (01) | DRG 917 ==
LOC: ERS 16:08 → OBS 20:21 → OBSVTOIN 03-12 09:37
PROVIDERS: ADMIT Family Medicine; ATTEND Family Medicine
DX: T43.621A Poisoning by amphetamines, accidental (unintentional), initial encounter (principal); I21.A1 Myocardial infarction type 2; N39.0 Urinary tract infection, site not specified; N20.0 Calculus of kidney; R00.0 Tachycardia, unspecified; F41.9 Anxiety disorder, unspecified; F32.A Depression, unspecified; M79.7 Fibromyalgia; M81.0 Age-related osteoporosis without current pathological fracture; F17.210 Nicotine dependence, cigarettes, uncomplicated; I25.10 Atherosclerotic heart disease of native coronary artery without angina pectoris; M17.11 Unilateral primary osteoarthritis, right knee; Z98.891 History of uterine scar from previous surgery; Z90.710 Acquired absence of both cervix and uterus; Z98.890 Other specified postprocedural states; Z88.2 Allergy status to sulfonamides; Z95.5 Presence of coronary angioplasty implant and graft; Z79.82 Long term (current) use of aspirin; Z79.899 Other long term (current) drug therapy
CPT/HCPCS: 36415; 71275; 72100; 80053; 80306; 81001; 83605; 83880; 84439; 84443; 84484; 85025; 85379; 86141; 87077; 87086; 87186; 93005; 93925; 96372; 96374; 96375; G0378; J1650; J1885; J3010; J7500; Q9967

== ENCOUNTER 2025-03-20 12:51 | Outpatient (CLI) | payer OTHER | END 2025-03-20 12:52 | disposition home or self-care (01) | LOC: LABBT 12:51 | PROVIDERS: ATTEND Student in an Organized Health Care Education/Training Program | DX: Z01.818 Encounter for other preprocedural examination (principal); S82.832D Other fracture of upper and lower end of left fibula, subsequent encounter for closed fracture with routine healing | CPT/HCPCS: 71046; 85025; 85610; 86850; 86900; 86901; 87081 ==